=== PATIENT | female | born 1985 | race Caucasian/White ===

== ENCOUNTER 2021-12-17 15:38 | Emergency (ER) | payer BC, SELFPAY | END 2021-12-17 16:15 | disposition home or self-care (01) | LOC: NAV ERS 15:38 | DX: S93.105A Unspecified dislocation of left toe(s), initial encounter (principal); W22.8XXA Striking against or struck by other objects, initial encounter; Y93.E5 Activity, floor mopping and cleaning; Y92.009 Unspecified place in unspecified non-institutional (private) residence as the place of occurrence of the external cause | CPT/HCPCS: 99283 ==